=== PATIENT | female | born 1995 | race Hispanic/Latino ===

== ENCOUNTER 2016-11-26 21:54 | Inpatient (IN) ==
[2016-11-26] MEDS ORDERED: KEFZOL 1 GM/D5W 1 GM/50 ML IVPB IV PRN (23:39)
[2016-11-26] MEDS ORDERED: LR 1,000 ML IV SCH (23:39)
[2016-11-26] MEDS ORDERED: SODIUM CHLORIDE 0.9% INJ ONE (23:41)
[2016-11-26] MEDS ORDERED: PEPCID IV ONE (23:41)
[2016-11-26] MEDS ORDERED: BICITRA PO ONE (23:41)
[2016-11-26] MEDS ORDERED: PITOCIN 10 UNITS/LR 10 UNIT/1,000 ML IV.SOLN IV SCH (23:45)
[2016-11-26] MEDS ORDERED: BICITRA ONE (23:49)
[2016-11-26] MEDS ORDERED: LR 4,000 ML ONE (23:50)
[2016-11-26] MEDS ORDERED: PEPCID ONE (23:50)
[2016-11-26] MEDS ORDERED: PERCOCET-5 PO PRN (23:56)
[2016-11-26] MEDS ORDERED: DULCOLAX PR PRN (23:56)
[2016-11-26] MEDS ORDERED: DEMEROL PO PRN ×2 (23:56)
[2016-11-26] MEDS ORDERED: PERCOCET-10 PO PRN (23:56)
[2016-11-26] MEDS ORDERED: M-M-R II VACCINE SUBQ ONE (23:56)
[2016-11-26] MEDS ORDERED: PHENERGAN IM PRN (23:56)
[2016-11-26] MEDS ORDERED: BOOSTRIX VACCINE IM ONE (23:56)
[2016-11-26] MEDS ORDERED: DEMEROL IM PRN (23:56)
[2016-11-26] MEDS ORDERED: AMBIEN PO PRN (23:56)
[2016-11-26] MEDS ORDERED: CYTOTEC PO PRN (23:56)
[2016-11-26] MEDS ORDERED: MYLICON PO PRN (23:56)
[2016-11-26] MEDS ORDERED: HYDROXYZINE PO PRN (23:56)
[2016-11-26] MEDS ORDERED: HYDROXYZINE IM PRN (23:56)
[2016-11-26] MEDS ORDERED: PITOCIN 20 UNITS/LR 20 UNITS/1,000 ML IV.SOLN IV ONE (23:56)
[2016-11-26] MEDS ORDERED: PITOCIN IM PRN (23:56)
[2016-11-27] MEDS ORDERED: NEO-SYNEPHRINE ONE
[2016-11-27] MEDS ORDERED: DURAMORPH ONE
[2016-11-27 00:03] LABS: MANUAL DIFF NEEDED? NO
[2016-11-27] MEDS ORDERED: ZOFRAN ONE (00:04)
[2016-11-27 00:30] LABS: URINE SOURCE VOIDED
[2016-11-27 00:36] LABS: BASO% 0.2 % (0.0-0.8); EOS# 0.29 X1000 (0.0-0.7); EOS% 2.2 % (0.0-10.0); HEMATOCRIT 40.9 % (37.0-47.0); HEMOGLOBIN 14.1 g/dL (12.0-16.0); IMM GRAN# 0.06 X1000 (0.0-0.04); IMM GRAN% 0.5 % (0.0-0.5); LYMPH# 3.26 X1000 (1.2-3.4); LYMPH% 24.9 % (20.5-51.1); MCHC 34.5 g/dL (33-37); MONO# 0.78 X1000 (0.11-0.59); MPV 11.2 FL (7.4-10.4); NEUT% 66.2 % (42.2-75.2); PLT 260 X1000 (130-400); RBC 4.87 XMIL (4.2-5.4)
[2016-11-27] MEDS ORDERED: PITOCIN ONE (00:36)
[2016-11-27 00:38] LABS: BILIRUBIN URINE NEGATIVE (NEGATIVE); BLOOD URINE 1+ (NEGATIVE); CLARITY CLEAR (CLEAR); COLOR YELLOW; GLUCOSE URINE NEGATIVE (NEGATIVE); LEUKOCYTES URINE TRACE (NEGATIVE); NITRITE URINE NEGATIVE (NEGATIVE); PROTEIN URINE TRACE mg/dL (NEGATIVE); SP GRAVITY URINE 1.015; UROBILINOGEN URINE NORMAL
[2016-11-27 00:44] LABS: UR AMPHETAMINES QUAL NONE DETECTED (NONE DETECT); UR BARBITUATES QUAL NONE DETECTED (NONE DETECT); UR BENZODIAZEPIN QUAL NONE DETECTED (NONE DETECT); UR CANNABINOIDS QUAL NONE DETECTED (NONE DETECT); UR COCAINE QUAL NONE DETECTED (NONE DETECT); UR MDMA QUAL NONE DETECTED (NONE DETECT); UR METHADONE QUAL NONE DETECTED (NONE DETECT); UR METHAMPHETAMINE QUAL NONE DETECTED (NONE DETECT); UR OPIATES QUAL NONE DETECTED (NONE DETECT); UR OXYCODONE QUAL NONE DETECTED (NONE DETECT); UR PCP QUAL NONE DETECTED (NONE DETECT); UR TCA QUAL NONE DETECTED (NONE DETECT)
[2016-11-27] MEDS ORDERED: ZOFRAN IV PRN ×2 (02:22)
[2016-11-27] MEDS ORDERED: BENADRYL IV PRN (02:22)
[2016-11-27] MEDS ORDERED: NARCAN INJ PRN (02:22)
[2016-11-27] MEDS ORDERED: ZOFRAN ODT PO PRN (02:22)
--- NOTE | 2016-11-27 02:42 | HISTORY AND PHYSICAL ---
HISTORY OF PRESENT ILLNESS: The patient is a 21-year-old female, 1, para 0, with an EDC of 12/25/2016. She came in at this time complaining of bleeding, was noted to be 8-9 cm with breech presentation, and therefore is admitted at this time for a stat section for breech presentation in labor. She denies any other difficulties during this . PAST MEDICAL HISTORY: None. MEDICATIONS: vitamins. ALLERGIES: None. PHYSICAL EXAMINATION: GENERAL: Well developed female. HEENT: Benign. NECK: Supple. LUNGS: Clear. CARDIOVASCULAR: Regular rate and rhythm. ABDOMEN: Soft and nontender. EXTREMITIES: No clubbing, cyanosis or edema. ASSESSMENT AND PLAN: 1. A 35-week intrauterine . 2. Breech presentation. 3. Active labor. She will be admitted at this time for primary section for delivery for breech presentation. cc: Todd Roland MD
[2016-11-27] MEDS: TORADOL IV SCH ×4 (02:48→22:27)
[2016-11-27 06:24] LABS: HEMATOCRIT 35.4 % (37.0-47.0); HEMOGLOBIN 11.7 g/dL (12.0-16.0); MCHC 33.1 g/dL (33-37); MCV 84.7 FL (81-99); MPV 11.1 FL (7.4-10.4); RBC 4.18 XMIL (4.2-5.4)
[2016-11-27] MEDS: MYLICON PO SCH ×5 (08:34→20:31)
--- NOTE | 2016-11-27 08:48 | OPERATIVE NOTE ---
PROCEDURE DATE : 11/27/2016 SURGEON: Todd Roland MD SKI PATROLLER: PREOPERATIVE DIAGNOSES: 1. A 36-week intrauterine . 2. Labor. 3. Breech presentation. POSTOPERATIVE DIAGNOSES: 1. A 36-week intrauterine . 2. Labor. 3. Breech presentation. PROCEDURE: Primary low transverse section. ANESTHESIA: Spinal by Dr. Zamora. FINDINGS: The patient had a female infant born in alec breech presentation, Apgars 8 and 9, weight is not available. DESCRIPTION OF OPERATION: The patient was taken to the operating room, given Ancef IV. She was given spinal anesthesia and prepped and draped in a sterile fashion. We made a skin incision, sharply dissected down to fascia. The fascia was dissected off the rectus muscle. The peritoneum was entered, we dissected down to create the bladder flap. A low transverse incision was made. The set o type operator's hand was introduced. The was in a alec breech presentation and was easily delivered using fundal pressure. Cord blood was obtained. The placenta was removed. She was given IV Pitocin. The uterus was externalized and cleaned with a clean lap. The incision was closed with #1 chromic in a locking fashion. Good hemostasis was noted throughout. The uterus was put back in its anatomic position. Irrigation was done. Good hemostasis noted throughout. The rectus muscle was closed with #0 chromic suture. Hemostasis was maintained with the Bovie. The fascia was closed with #1 Vicryl, 3-0 Vicryl was used subcuticularly, and then the skin was closed with a 4-0 Biosyn. Estimated blood loss was 400 mL. Mother and infant are doing well. cc: Todd Roland MD
[2016-11-27] MEDS: PERICOLACE PO SCH (20:31)
[2016-11-27] MEDS ORDERED: LR 1,000 ML IV SCH (23:56)
[2016-11-28] MEDS: MOTRIN PO PRN ×2 (09:08→17:27)
[2016-11-28] MEDS: MYLICON PO SCH ×4 (09:08→20:27)
--- NOTE | 2016-11-28 12:52 | PROGRESS NOTE ---
DATE: 11/28/2016 SUBJECTIVE: She is postop day 1. She is without complaints. Ambulating, voiding, tolerating p.o. OBJECTIVE: Vital signs: Are stable. She is afebrile. General: She appears to be in no distress. Neck: Supple. Lungs: Clear. Heart: Regular sinus rhythm. Abdomen: Distended. Incision is dry. LABS: Hemoglobin 11.7. ASSESSMENT: postop day 1. PLAN: Routine care, probable discharge in the morning. cc: MD Todd Don MD
[2016-11-28] MEDS: PERICOLACE PO SCH (20:27)
[2016-11-29] MEDS: MOTRIN PO PRN (04:35)
[2016-11-29 08:38] VITALS: BP 107/55
[2016-11-29] MEDS: MYLICON PO SCH (08:39)
--- NOTE | 2016-11-29 15:18 | DISCHARGE SUMMARY ---
ADMISSION DATE: 11/26/2016 DISCHARGE DATE: 11/29/2016 PREOPERATIVE DIAGNOSES: 1. Intrauterine at 36 weeks. 2. Malpresentation. 3. Labor. DISCHARGE DIAGNOSES: Status post primary low segment transverse section. HISTORY OF PRESENT ILLNESS: The patient is a 21-year-old, G1, with intrauterine at 36 weeks who presented to labor and delivery at 8 cm with breech presentation. She was subsequently taken for a stat section. Please see full operative report for details. HOSPITAL COURSE: Postoperatively, patient was transferred to the floor for routine postop care. On postop day #1, Fernandez catheter was discontinued. Hematocrit returned 35 and on postop day #2 the patient was ambulating without difficulty, tolerating regular diet, with normal lochia and was felt to be stable for discharge home. DISCHARGE DISPOSITION: The patient is discharged home. PRIMARY PROCEDURE: Primary low segment transverse section. DISCHARGE INSTRUCTIONS: The patient to follow up in 1 week for postop visit. cc: MD Todd Fountain MD
== END 2016-11-29 12:30 | disposition home or self-care (01) ==
LOC: P.OPLD 21:54 → P.LD 22:10 → P.WC 11-27 03:11
PROVIDERS: ADMIT Obstetrics & Gynecology; ATTEND Obstetrics & Gynecology